=== PATIENT | male | born 1965 | race African-American/Black ===

== ENCOUNTER 2025-03-27 06:04 | Day surgery (SDC) | payer OTHER ==
[2025-03-22 11:15] VITALS: BMI 29.0
[2025-03-27 09:17] VITALS: RESP 18
[2025-03-27] MEDS ORDERED: ACETAMINOPHEN INJECTION 100 ML ONE (10:17)
[2025-03-27] MEDS ORDERED: MIDAZOLAM HCL 2 MG/2 ML SINGLE DOSE VIAL ONE (10:19)
[2025-03-27] MEDS ORDERED: ROCURONIUM BROMIDE 50 MG/5 ML SYRINGE ONE (10:19)
[2025-03-27] MEDS ORDERED: PROPOFOL 20 ML ONE (10:19)
[2025-03-27] MEDS ORDERED: ONDANSETRON 4 MG/2 ML VIAL IVPUSH PRN (10:41)
[2025-03-27] MEDS ORDERED: VANCOMYCIN 1,000 MG VIAL (RESTRICTED TO ID ONLY) ONE (10:41)
[2025-03-27] MEDS ORDERED: THROMBIN (BOVINE) 20,000 UNIT VIAL TP ONE (10:42)
[2025-03-27] MEDS ORDERED: DEXAMETHASONE SOD PHOSPHATE 4 MG/1 ML VIAL ONE (11:13)
[2025-03-27] MEDS ORDERED: ONDANSETRON 4 MG/2 ML VIAL ONE (11:13)
[2025-03-27] MEDS: BUPIVACAINE 0.25% /EPI 1:200,000 10 ML VIAL INF ONE (11:30)
[2025-03-27] MEDS ORDERED: PHENYLEPHRINE HCL 10 MG/1 ML SINGLE DOSE VIAL ONE (11:35)
[2025-03-27] MEDS: VANCOMYCIN 1,000 MG VIAL (RESTRICTED TO ID ONLY) IVPB ONE (11:35)
[2025-03-27] MEDS: THROMBIN (BOVINE) 20,000 UNIT VIAL TP ONE (11:35)
[2025-03-27] MEDS: THROMBIN (BOVINE) 5,000 UNIT VIAL TP ONE (11:35)
[2025-03-27] MEDS: BUPIVACAINE HCL/PF 0.5% (5MG/ML) 10 ML VIAL IJ ONE ×2 (11:40→12:00)
[2025-03-27] MEDS ORDERED: SUGAMMADEX SODIUM 200 MG/2 ML VIAL ONE (12:02)
[2025-03-27] MEDS: LACTATED RINGERS SOLUTION 1,000 ML IV SCH (13:06)
[2025-03-27 14:55] VITALS: BP 150/82; PULSE 79; TEMP 97.3
== END 2025-03-27 15:22 | disposition home or self-care (01) ==
LOC: JASU-SURG 06:04 → EDSTATUS 14:00 → JASU-SURG 15:22
PROVIDERS: ATTEND Orthopaedic Surgery Orthopaedic Surgery of the Spine
PROC: 0SB20ZZ Excision of Lumbar Vertebral Disc, Open Approach (ICD-10-PCS; principal; 2025-03-27 08:00)
DX: M51.16 Intervertebral disc disorders with radiculopathy, lumbar region (principal); M48.061 Spinal stenosis, lumbar region without neurogenic claudication
CPT/HCPCS: 76000-TC-FY; 86900; 94760; 97116-GP